=== PATIENT | female | born 1965 | race American Indian/Alaskan Native ===

== ENCOUNTER 2016-10-20 13:20 | Day surgery (SDC) | payer OTHER ==
[~2016-10-20 13:20] MED LIST: FERRIC SUBSULFATE TOP ONE
[2016-10-20 13:36] VITALS: BMI 29.9
--- NOTE | 2016-10-20 14:36 | C.PDOC ---
History Of Present Illness 51 y/o F c PMHx HTN, DM, asthma, anemia p/w vaginal bleeding x months. Patient has been having intermittent vaginal bleeding after coitus. She does note some lightheadedness but denies chest pain, dyspnea, or palpitations. She was seen in the office today be Dr. Jeyson BUCKLEY who recommended she come to the ER for further evaluation and treatment. Denies abdominal pain, vomiting, fever. Time Seen by Provider: 10/20/16 14:03 Chief Complaint (Nursing): Female Genitourinary Past Medical History Vital Signs: Last Vital Signs Temp 98.6 F 10/20/16 13:37 Pulse 92 H 10/20/16 13:37 Resp 20 10/20/16 13:37 BP 130/84 10/20/16 13:37 Pulse Ox 100 10/20/16 14:39 - Medical History PMH: Arthritis, Asthma, Bronchitis, CVA (?), Diabetes, Gastritis, HTN, Hypercholesterolemia, Migraine, Peripheral Edema Denies: Chronic Kidney Disease - [facility] Procedures OTHER SKIN & SUBQ I D (05/29/14) Family History: States: Unknown Family Hx - Social History Hx Tobacco Use: No Hx Alcohol Use: No Hx Substance Use: No - Immunization History Hx Tetanus Toxoid Vaccination: No Hx Influenza Vaccination: No Hx Pneumococcal Vaccination: No Review Of Systems Except As Marked, All Systems Reviewed And Found Negative. Cardiovascular: Negative for: Chest Pain Respiratory: Negative for: Shortness of Breath Physical Exam - Physical Exam Additional Physical Exam Comments: Constitutional: No acute distress. Head: Normocephalic. Atraumatic. Eyes: PERRL. ENT: Moist mucous membranes. Neck: Supple. Cardiovascular: Regular rate. Radial pulse 2+ bilaterally. Chest: No tenderness. Respiratory: Clear to auscultation bilaterally. GI: Soft. Nontender. Nondistended. Back: No CVA tenderness. Musculoskeletal: No tenderness or swelling of extremities. Skin: No rash. Neurologic: Alert, no focal deficit. ED Course And Treatment - Laboratory Results Result Diagrams: 10/20/16 14:38 10/20/16 14:38 O2 Sat by Pulse Oximetry: 100 (RA) Pulse Ox Interpretation: Normal Medical Decision Making Medical Decision Making: Discussed case with MARCIO who states that in office, friable mass protruding from cervix and recommends against repeat pelvic exam in ER. Will take to OR for D&C. 3 units pRBCs Type and Crossmatched for OR. Disposition Discussed With .: Rohith Jimenez Doctor Will See Patient In The: Hospital - Disposition Disposition: HOSPITALIZED Disposition Time: 15:02 Condition: FAIR Forms: [facility] ([place]ian) - Clinical Impression Clinical Impression: Uterine hemorrhage - Scribe Statement The provider has reviewed the documentation as recorded by the Briannaibdavion Dobson All medical record entries made by the Briannaibdavion were at my direction and personally dictated by me. I have reviewed the chart and agree that the record accurately reflects my personal performance of the history, physical exam, medical decision making, and the department course for this patient. I have also personally directed, reviewed, and agree with the discharge instructions and disposition.
[2016-10-20 14:42] LABS: BASO # 0.1 K/uL (0.0-0.2); BASO % 0.6 % (0.0-2.0); EOS % 0.2 % (0.0-4.0); HEMATOCRIT 36.8 % (34.0-47.0); LYMPH # 2.8 K/uL (1.0-4.3); LYMPH % 32.9 % (20.0-40.0); MEAN CELL VOLUME 80.9 fL (81.0-99.0); MEAN CORPUSCULAR HEMOGLOBIN 26.5 pg (27.0-31.0); MEAN CORPUSCULAR HGB CONC 32.7 g/dL (33.0-37.0); MEAN PLATELET VOLUME 9.8 fL (7.2-11.7); MONO # 0.5 K/uL (0.0-0.8); MONO % 6.1 % (0.0-10.0); RED CELL DISTRIBUTION WIDTH 14.4 % (11.5-14.5); WHITE BLOOD COUNT 8.4 K/uL (4.8-10.8)
[2016-10-20 14:51] LABS: CHLORIDE 98 mmol/L (98-107); SODIUM 136 mmol/L (132-148)
[2016-10-20 14:53] LABS: GFR AFRICAN-AMERICAN > 60
[2016-10-20 14:54] LABS: ALB/GLOB RATIO 1.1 (1.0-2.1); ALKALINE PHOSPHATASE 84 U/L (38-126); ALT/SGPT 27 U/L (9-52); AST/SGOT 22 U/L (14-36); BILIRUBIN,TOTAL 0.8 mg/dL (0.2-1.3); BLOOD UREA NITROGEN 12 mg/dL (7-17); CALCIUM 9.6 mg/dl (8.6-10.4); CARBON DIOXIDE 25 mmol/L (22-30); GLUCOSE,RANDOM 153 mg/dL (65-105); POTASSIUM 4.1 mmol/L (3.6-5.2); TOTAL PROTEIN 8.1 g/dL (6.3-8.3)
[2016-10-20] MEDS: HYDROmorphone 0.5 mg/0.5 ml ISec IVP PRN ×2 (17:05→17:56)
[2016-10-20] MEDS ORDERED: Propofol 10 mg/ml Inj (20 ML) ONE (17:24)
[2016-10-20] MEDS ORDERED: Clindamycin 2% Vaginal Cream(40 gm) ONE (17:24)
[2016-10-20] MEDS ORDERED: cefOXitin IV 2 gm in Dextrose 2 GM/50 ML BAG IVPB ONE (17:24)
[2016-10-20] MEDS ORDERED: Midazolam 2 MG/2 ML VIAL ONE (17:24)
[2016-10-20] MEDS ORDERED: Lactated Ringer's 1,000 ML IV ONE (17:25)
[2016-10-20] MEDS ORDERED: HYDROmorphone 0.5 mg/0.5 ml ISec ONE (18:37)
[2016-10-20 20:59] VITALS: TEMP 97
[2016-10-20 22:04] VITALS: BP 140/62; PULSE 59; RESP 14; O2SAT 97
--- NOTE | 2016-10-21 00:08 | OP ---
PROCEDURE DATE: 10/20/2016 PREOPERATIVE DIAGNOSIS: Prolapsing cervical mass, rule out endometrial cancer, rule out prolapsing myoma. POSTOPERATIVE DIAGNOSIS: Prolapsing cervical mass, rule out endometrial cancer, rule out prolapsing myoma. PROCEDURE: Excision of prolapsing endocervical mass. FINDINGS: 4 cm prolapsing endocervical mass to the lower portion of the posterior end of the cervical canal. SURGEON: Dr. Jeff. ANESTHESIA: General. ESTIMATED BLOOD LOSS: 50 mL. COMPLICATIONS: NIL. DESCRIPTION OF THE PROCEDURE: After the risks, benefits, and alternatives of the planned procedures including, but not limited to infection, hemorrhage, deep vein thrombosis, atelectasis, pneumonia, pulmonary embolism, damage to the bladder, damage to the ureter, renal insufficiency, renal failure, wound infection, wound dehiscence, incisional hernia, keloid formation, damage to large and small intestines, damage to inferior vena cava and aorta requiring extensive repair, anesthesia complications, electrolyte imbalance, possibility of , fluid overload, cerebral edema, air embolism, and other complications that were discussed, but are not listed above have been explained to the patient and all her questions answered and informed consent was obtained. The patient was taken to the operating room in a stable condition. Under a suitable level of general anesthesia, she was prepped and draped in a sterile fashion after having been placed in a dorsal lithotomy position. The bladder was emptied with a straight catheterization. Examination under anesthesia revealed a normal sized uterus anteverted with no adnexal masses. A 4 cm endocervical canal mass was noted. The mass was protruding from the exocervix. The pedicle of the mass was then grasped using a Chiquis clamp and resected and tumor was submitted for pathology. It was friable and appeared almost necrotic. The area in the posterior lower end of the cervical canal, which was bleeding was then ligated using #0 chromic sutures with good hemostasis. An endocervical curettage was performed. Cervix was then dilated to a #6. Uterus was sounded to 7 cm. The cervix was dilated to #18 Hanks dilator. Endometrial curettage was performed and scant tissue was obtained. At the end of the procedure, the instruments were removed from the vagina. Excellent hemostasis was achieved. The patient was then transferred to the recovery room in a stable condition. Sponge, needle and instrument counts were correct x2. There were no complications. Rohith Jimenez MD [facility] # [id number]
== END 2016-10-20 21:50 | disposition home or self-care (01) ==
LOC: C.ER 13:20 → C.SDS 15:06
PROVIDERS: ATTEND Obstetrics & Gynecology Reproductive Endocrinology
DX: C53.0 Malignant neoplasm of endocervix (principal); D64.9 Anemia, unspecified; E11.9 Type 2 diabetes mellitus without complications; I10 Essential (primary) hypertension; J45.909 Unspecified asthma, uncomplicated; Z86.73 Personal history of transient ischemic attack (TIA), and cerebral infarction without residual deficits
CPT/HCPCS: 36415; 58120; 80053; 82948; 84233; 85025; 85610; 85730; 86850; 86900; 86920; 88305; 88342; 99285; J0694; J1170; J2250; J2405; J2704; J3010; J7120

== ENCOUNTER 2018-03-26 11:43 | Outpatient (CLI) | payer OTHER | END 2018-03-26 11:44 | disposition home or self-care (01) | LOC: C.RADH 11:43 | DX: R05 Cough (principal) ==

== ENCOUNTER 2018-05-16 17:06 | Emergency (ER) | payer OTHER ==
[2018-05-16 17:06] VITALS: BMI 29.9
[2018-05-16 17:26] VITALS: BP 144/90; PULSE 83; RESP 18; TEMP 98; O2SAT 100
--- NOTE | 2018-05-16 19:20 | C.PDOC ---
History Of Present Illness Patient with Hx of migraine presents with headache. Patient started with ambien 4 days ago for insomnia and since then she has had worsening headache and dizziness with associated emesis and mild photophobia. Denies fever or chills. Time Seen by Provider: 05/16/18 19:12 Chief Complaint (Nursing): Headache History Per: Patient History/Exam Limitations: no limitations Onset/Duration Of Symptoms: Days (4) Current Symptoms Are (Timing): Still Present Severity: Moderate Pain Scale Rating Of: 4 Quality: Dull Preceeding Symptoms: None Associated Symptoms: Photophobia (mild), Vomiting Recent travel outside of the [place]: No Additional History Per: Family Past Medical History Reviewed: Historical Data, Nursing Documentation, Vital Signs Vital Signs: Last Vital Signs Temp 98.0 F 05/16/18 17:21 Pulse 83 05/16/18 17:21 Resp 18 05/16/18 17:21 BP 144/90 05/16/18 17:21 Pulse Ox 100 05/16/18 17:21 - Medical History PMH: Arthritis, Asthma, Bronchitis, CVA (?), Diabetes, Gastritis, HTN, Hypercholesterolemia, Migraine, Peripheral Edema Denies: Chronic Kidney Disease - [facility] Procedures OTHER SKIN & SUBQ I D (05/29/14) Family History: States: No Known Family Hx - Social History Hx Tobacco Use: No Hx Alcohol Use: No Hx Substance Use: No - Immunization History Hx Tetanus Toxoid Vaccination: Yes Hx Influenza Vaccination: Yes Hx Pneumococcal Vaccination: Yes Review Of Systems Constitutional: Negative for: Fever, Chills Eyes: Positive for: Other (Mild photophobia) Cardiovascular: Negative for: Chest Pain, Palpitations Respiratory: Negative for: Cough, Shortness of Breath Gastrointestinal: Positive for: Vomiting. Negative for: Abdominal Pain Skin: Negative for: Rash Neurological: Positive for: Headache, Dizziness. Negative for: Weakness, Numbness Psych: Negative for: Anxiety Physical Exam - Physical Exam Appears: Non-toxic Skin: Warm, Dry Head: Normacephalic Eye(s): bilateral: Normal Inspection (No nystagmus), PERRL, EOMI Oral Mucosa: Moist Neck: Trachea Midline, Supple Chest: Symmetrical, No Tenderness Cardiovascular: Rhythm Regular Respiratory: No Rales, No Rhonchi, No Wheezing Gastrointestinal/Abdominal: Soft, No Tenderness Neurological/Psych: Oriented x3 ED Course And Treatment O2 Sat by Pulse Oximetry: 100 (Room air) Pulse Ox Interpretation: Normal Progress Note: Zofran and antivert administered. Reevaluation Time: 19:40 Reassessment Condition: Improved Disposition Counseled Patient/Family Regarding: Studies Performed, Diagnosis, Need For Followup, Rx Given - Disposition Referrals: Alejandro Colvin MD [Staff Provider] - Disposition: HOME/ ROUTINE Disposition Time: 19:20 Condition: FAIR Additional Instructions: Please return if symptoms recur. Stop Ambien Prescriptions: Meclizine [Antivert] 25 mg PO TID #15 tab Ondansetron ODT [Zofran ODT] 1 odt PO BID PRN #6 odt PRN Reason: Nausea/Vomiting Instructions: Migraine Headache (DC) Forms: [facility] ([place]an) - Clinical Impression Clinical Impression: Migraine - Scribe Statement The provider has reviewed the documentation as recorded by the Scribe Rodrigo Bustillos All medical record entries made by the Scribe were at my direction and personally dictated by me. I have reviewed the chart and agree that the record accurately reflects my personal performance of the history, physical exam, medical decision making, and the department course for this patient. I have also personally directed, reviewed, and agree with the discharge instructions and disposition.
== END 2018-05-16 19:58 | disposition home or self-care (01) ==
LOC: C.ER 17:06
DX: G43.909 Migraine, unspecified, not intractable, without status migrainosus (principal); E11.9 Type 2 diabetes mellitus without complications; I10 Essential (primary) hypertension